=== PATIENT | male | born 1955 | race Caucasian/White ===

== ENCOUNTER 2017-05-09 16:12 | Emergency (ER) | payer OTHER ==
[~2017-05-09 16:12] MED LIST: ASPIRIN EC81 M1 PO; BENZONATATE100 M1 PO; BIAXIN250 MG PO; CHERATUSSIN AC118 ML PO; LAMOTRIGINE25 M3; LEVAQUIN500 M1 PO; LISINOPRIL20 M1 PO; METFORMIN HCL500 M3 PO; METOPROLOL TART50 M1; PROAIR HFA8.5 GM INH; TAMSULOSIN HCL0.4 M1; TRAZODONE HCL50 M1
--- NOTE | 2017-05-09 16:21 | ED CARDIAC/CP/PALPITATIONS ---
See Addendum History of Present Illness General Chief Complaint: Chest Pain Stated Complaint: SIB DR MAYES FOR EKG CHANGES Source: patient Exam Limitations: no limitations Vital Signs & Intake/Output Vital Signs & Intake/Output Vital Signs Date Time Temp Pulse Resp B/P B/P Pulse O2 O2 Flow FiO2 Mean Ox Delivery Rate 05/09 1801 118/58 05/09 1737 99.8 05/09 1648 98 Room Air Room Air 05/09 1642 99.8 05/09 1638 158/78 05/09 1627 99.8 96 20 173/98 93 Room Air Allergies Coded Allergies: NO KNOWN ALLERGIES (09/09/15) Reconcile Medications Aspirin (Ecotrin*) 81 MG TABLET.DR 1 TAB PO DAILY HEART/BLOOD (Reported) Atorvastatin Calcium 20 MG TABLET 1 TAB PO DAILY CHOLESTEROL (Reported) Losartan/Hydrochlorothiazide (Losartan-Hctz 100-25 MG Tab) 100 MG-25 MG TABLET 1 TAB PO DAILY BP (Reported) Metformin HCl 500 MG TABLET 1 TAB PO QPM DM (Reported) Mirabegron (Myrbetriq) (Unknown Strength) TAB.ER.24H (Unknown Dose) PO DAILY (Reported) Silodosin (Rapaflo) (Unknown Strength) CAPSULE (Unknown Dose) PO DAILY ( Reported) Triage Nurses Notes Reviewed? yes Onset: Gradual Duration: getting worse Timing: single episode today Quality/Severity: moderate Radiation: shoulders HPI: Patient is a 61-year-old male with a past medical history of hypertension hyperlipidemia and diabetes who presents emergency room saying that today he woke up his [facility] approximately 10:00 patient had a gradual onset of headache complaints and then 1 hour later at 11:00 while at rest at his desk at work he had a gradual onset of left-sided chest pain "pinching sensation" where he states that the chest pain has worsens patient has had intermittent episodes of nausea and lightheaded sensation and left shoulder pain Patient was evaluated at a routine appointment today by his primary care doctor and was advised to presents emergency room at her EKG showed concerns of ST elevation in lead 2 and aVR depression Patient denies any illicit drug use denies any smoking or drinking alcohol. Denies any leg swelling, hemoptysis history of DVT or PE recent travel or recent surgery hemoptysis fever chills cough (Rubén Thompson) Past History Travel History Traveled to [place] past 21 day No Medical History Any Pertinent Medical History? see below for history Neurological: migraine EENT: NONE Cardiovascular: hypertension, hyperlipidemia Respiratory: obstructive sleep apnea Gastrointestinal: NONE Hepatic: NONE Renal: NONE Musculoskeletal: NONE Psychiatric: NONE Endocrine: diabetes, obesity Blood Disorders: NONE Cancer(s): NONE [employer]IST/Reproductive: NONE Surgical History Surgical History: knee arthroscopy c4-5 fusion Psychosocial History What is your primary language Azeri Family History Hx Contributory? No (Rubén Thompson) Review of Systems Review of Systems Constitutional: Reports: no symptoms. EENTM: Reports: no symptoms. Respiratory: Reports: see HPI. Cardiovascular: Reports: see HPI, chest pain. GI: Reports: see HPI, nausea. Genitourinary: Reports: no symptoms. Musculoskeletal: Reports: no symptoms. Skin: Reports: no symptoms. Neurological/Psychological: Reports: no symptoms. Hematologic/Endocrine: Reports: no symptoms. Immunologic/Allergic: Reports: no symptoms. All Other Systems: Reviewed and Negative (Rubén Thompson) Physical Exam Physical Exam General Appearance: no apparent distress, obese Head: atraumatic Eyes: Bilateral: normal appearance. Ears, Nose, Throat: hearing grossly normal Neck: normal inspection Respiratory: normal breath sounds, chest non-tender, no respiratory distress Cardiovascular: regular rate/rhythm Gastrointestinal: normal bowel sounds, soft, non-tender Extremities: normal inspection Neurologic/Psych: no motor/sensory deficits, awake Skin: intact, normal color Core Measures ACS in differential dx? Yes CVA/TIA Diagnosis No Sepsis Present: No Sepsis Focused Exam Completed? No (Rubén Thompson) Progress Differential Diagnosis: AMI, aortic dissection, atrial fibrillation, cholecystitis, CHF/pulm edema, costochondritis, hyperkalemia, hypovolemia, hyperthyroid, hyperventilation, intracranial hemorrhage, musculoskeletal pain, myocarditis, pancreatitis, pericarditis, pneumonia, pneumothorax, PSVT, pulmonary embolism, PUD/GERD, PVCs/PACs, respiratory failure, sepsis, unstable angina, V-fib/V-Tach, WPW syndrome Plan of Care: Orders Procedure Date/time Status Regular Diet 05/09 D Active OXYGEN SETUP (GEN) 05/09 1821 Active Saline Lock 05/[address] in observation 05/09 1821 Active Vital Signs 05/09 1821 Active Activity/Ambulation 05/09 1821 Active Code Status 05/09 1821 Active Add-on Test (ER Only) 05/09 1820 Active Add-on Test (ER Only) 05/09 1635 Active THYROID STIMULATING HORMONE 05/09 1624 Active THYROXINE 05/09 1624 Active D-DIMER 05/09 1624 Complete B-TYPE NATRIURETIC PEP (BNP) 05/09 1624 Active TROPONIN LEVEL 05/09 162 Active COMPREHENSIVE METABOLIC PANEL 05/09 162 Active CBC WITHOUT DIFFERENTIAL 05/09 162 Complete EKG 05/09 1613 Active Laboratory Tests 05/09/17 1624: Anion Gap 15, Estimated GFR > 60, BUN/Creatinine Ratio 22.9, Glucose 263 H, Calcium 9.7, Total Bilirubin 0.6, AST 68 H, ALT 134 H, Alkaline Phosphatase 135 H, Troponin I < 0.01, [id number]-A-[id number] Pept Pending, Total Protein 7.2, Albumin 4.3, Globulin 2.9, Albumin/Globulin Ratio 1.5, TSH 2.050, Thyroxine (T4) 8.0, D-Dimer High Sensitivty < 200, CBC w Diff NO MAN DIFF REQ, RBC 4.79, MCV 98.5 H, MCH 32.3 H, MCHC 32.8 L, RDW 13.5, MPV 7.7, Gran % 58.8, Lymphocytes % 32.6, Monocytes % 6.0, Eosinophils % 2.0, Basophils % 0.6, Absolute Granulocytes 5.0, Absolute Lymphocytes 2.8, Absolute Monocytes 0.5, Absolute Eosinophils 0.2, Absolute Basophils 0 Patient on initial presentation was resting, bedside however does have elevated blood pressure and current chest pain were nitroglycerin and an aspirin were administered residential monitor placed initial EKG was unremarkable however there was previous prior to arrival EKG abnormalities patient does have concerning risk factors for ACS and worsening pain and radiation to his left shoulder pain. After nitroglycerin was administered patient states she had no change in symptoms a second dose was administered. After nitroglycerin ointment was applied patient still had ongoing chest pain discussed patient with Hugo Madison MD who advised patient to be placed in observation Discussed disposition plan of observation with patient who agrees Diagnostic Imaging: Viewed by Me: Radiology Read. CXR Impression: SEE COMMENTS Pre-Hospital EKG: SINUS RHYTHM 84 BPM, ST ELEVATION LEAD II, AVR MILD DEPRESSION Initial ED EKG: normal intervals, normal p-waves, 93 BPM,NSR Comments: PATIENT: HOLDAWAY,NORBERTO D PRESENT AGE: 61 PATIENT ACCOUNT NO: [id number] : 59 LOCATION: [facility] ORDERING PHYSICIAN: Rubén ADAMS SERVICE DATE: 05/09/17 EXAM TYPE: RAD - XRY-CHEST XRAY, TWO VIEWS EXAMINATION: XR CHEST CLINICAL INFORMATION: Chest pain. COMPARISON: Chest radiograph 10/09/2016. TECHNIQUE: 2 views of the chest were obtained. FINDINGS: Lungs are well-expanded with exception of minimal subsegmental atelectasis within the lingula. There is no focal consolidative disease, pleural effusion, or pneumothorax. The cardiac silhouette is enlarged. Upper mediastinal contours are unremarkable. No acute osseous finding. IMPRESSION: Stable examination. Cardiomegaly. No consolidative disease or effusion. DICTATED BY: Juan F Barbour MD DATE/TIME DICTATED:05/09/171815 BICYCLE REPAIRMAN:VENU DATE/TIME TRANSCRIBED:05/09/171815 (Rubén Thompson) Departure Departure Disposition: STILL A PATIENT Condition: Stable Clinical Impression Primary Impression: Chest pain Secondary Impressions: Hyperglycemia, Hypertension Referrals: Destinee Mayes DO (PCP/Family) Departure Forms: Customer Survey General Discharge Information Observation Note Spoke With: Carlito Vigil MD Physician Advisor Notified: AWA SALEH,LYNSEY Martinez Place Patient In: Non-ED OBS Care Area Rationale for Observation: My rational for observation is as follows [patient requires rule out ACS observation for continued chest pain requires repeat EKG repeat troponins ]. cardiology consultation nitroglycerin administration (Rubén Thompson) PA/WELL DRILLER Co-Sign Statement Statement: ED Attending supervision documentation- x I saw and evaluated the patient. I have also reviewed all the pertinent lab results and diagnostic results. I agree with the findings and the plan of care as documented in the PA's/WELL DRILLER's documentation. EKG changes, CP relieved with nitro. Refuses to stay in hospital [] I have reviewed the ED Record and agree with the PA's/WELL DRILLER's documentation. [] Additions or exceptions (if any) to the PAs/WELL DRILLER's note and plan are summarized below: [] (Val SALEH,Roberto Carlos) Critical Care Note Critical Care Note Critical Care Time: 30-74 min (Rubén Thompson)
[2017-05-09 16:41] LABS: ABSOLUTE BASOPHIL COUNT 0 /CUMM (0.0-0.2); ABSOLUTE EOSINOPHIL COUNT 0.2 /CUMM (0.0-0.7); ABSOLUTE LYMPH COUNT 2.8 /CUMM (1.2-3.4); ABSOLUTE MONOCYTE COUNT 0.5 /CUMM (0.10-0.60); BASOPHIL % 0.6 % (0.0-2.0); GRANULOCYTE % 58.8 % (42.2-75.2); HEMATOCRIT 47.2 % (42-52); MEAN CORPUSCULAR HGB 32.3 PG (27.0-31.0); MEAN CORPUSCULAR HGB CONC 32.8 G/DL (33.0-37.0); MEAN CORPUSCULAR VOLUME 98.5 FL (80.0-94.0); MEAN PLATELET VOLUME 7.7 FL (7.4-10.4); PLATELET COUNT 365 /CUMM (130-400); RBC DISTRIBUTION WIDTH 13.5 % (11.5-14.5); RED BLOOD CELL CT 4.79 /CUMM (4.70-6.10); WHITE BLOOD CELL COUNT 8.4 /CUMM (4.8-10.8)
[2017-05-09] MEDS ORDERED: LOSARTAN-HCTZ1 EAC2 PO (18:11)
[2017-05-09] MEDS ORDERED: ATORVASTATIN CA20 M1 PO (18:12)
[2017-05-09] MEDS ORDERED: MYRBETRIQ50 M1 PO (18:13)
[2017-05-09] MEDS ORDERED: RAPAFLO4 M1 PO (18:14)
--- NOTE | 2017-05-09 18:22 | RADIOLOGY REPORT ---
EXAMINATION: XR CHEST CLINICAL INFORMATION: Chest pain. COMPARISON: Chest radiograph 10/09/2016. TECHNIQUE: 2 views of the chest were obtained. FINDINGS: Lungs are well-expanded with exception of minimal subsegmental atelectasis within the lingula. There is no focal consolidative disease, pleural effusion, or pneumothorax. The cardiac silhouette is enlarged. Upper mediastinal contours are unremarkable. No acute osseous finding. IMPRESSION: Stable examination. Cardiomegaly. No consolidative disease or effusion.
[2017-05-09 21:34] VITALS: BP 122/64
== END 2017-05-09 21:46 | disposition left against medical advice (07) ==
LOC: ERH 16:12
PROVIDERS: Physician Assistant
DX: R07.89 Other chest pain (principal); I10 Essential (primary) hypertension; E11.9 Type 2 diabetes mellitus without complications; E78.5 Hyperlipidemia, unspecified; E66.9 Obesity, unspecified
CPT/HCPCS: 71046; 93005; 93010; 96365; J0131; J3490